=== PATIENT | female | born 1995 | race Two or more races ===

== ENCOUNTER 2019-11-20 02:48 | Emergency (ER) | payer SELFPAY ==
[~2019-11-20] VITALS: Ht 170.2 cm; Wt 82.1 kg
[2019-11-20 02:55] VITALS: Ht 170.2 cm; Wt 82.1 kg
[2019-11-20 03:50] LABS: BASOPHIL % 0.5 % (0-2); PLATELET COUNT 273 x10^3mcL (130-400); RED CELL DISTRIBUTION WIDTH 13.4 % (11.5-14.5)
[2019-11-20 04:05] LABS: UA SPECIFIC GRAVITY 1.015 (1.005-1.035); microscopic required? YES; urine erythrocyte 3+ (NEGATIVE)
[2019-11-20 04:37] VITALS: BP 138/72
== END 2019-11-20 04:37 | disposition home or self-care (01) ==
LOC: ED 02:48
PROVIDERS: Specialist
DX: O03.9 Complete or unspecified spontaneous abortion without complication (principal)
CPT/HCPCS: 36415

== ENCOUNTER 2020-10-05 05:23 | Emergency (ER) | payer OTHER ==
[~2020-10-05] VITALS: Ht 170.2 cm; Wt 100.7 kg
[2020-10-05 05:25] VITALS: Ht 170.2 cm; Wt 100.7 kg
[2020-10-05 07:49] VITALS: BP 135/61
== END 2020-10-05 08:40 | disposition home or self-care (01) ==
LOC: ED 05:23
DX: O90.89 Other complications of the puerperium, not elsewhere classified (principal); R51.9 Headache, unspecified
CPT/HCPCS: J1885; J7030